=== PATIENT | female | born 1995 | race African-American/Black ===

== ENCOUNTER 2018-06-16 08:00 | Emergency (ER) | payer OTHER ==
[~2018-06-16] VITALS: Ht 167.6 cm; Wt 60.8 kg
[2018-06-16 08:01] VITALS: BP 117/71
[2018-06-16] MEDS ORDERED: KETOROLAC 30 MG/1 ML ONE (08:29)
[2018-06-16] MEDS ORDERED: HYDROcodone/APAP 5/325 TABLET ONE (08:29)
[2018-06-16] MEDS ORDERED: DIPH,PERTUSS(ACELL),TET VAC/PF 0.5 ML IM-VACC ONE ×2 (08:30)
[2018-06-16] MEDS ORDERED: HYDROcodone/APAP 5/325 TABLET PO ONE (08:30)
[2018-06-16] MEDS ORDERED: KETOROLAC 30 MG/1 ML IM ONE (08:30)
[2018-06-16] MEDS ORDERED: L.E.T SOLUTION TP ONE ×4 (08:30→09:09)
[2018-06-16] MEDS ORDERED: BACITRACIN ZINC OINT 500U/GM, 0.9 GM ONE ×2 (09:10)
== END 2018-06-16 10:54 | disposition home or self-care (01) ==
LOC: ED 08:53
DX: S50.311A Abrasion of right elbow, initial encounter (principal); S80.212A Abrasion, left knee, initial encounter; S80.211A Abrasion, right knee, initial encounter; S50.312A Abrasion of left elbow, initial encounter; S09.90XA Unspecified injury of head, initial encounter; W19.XXXA Unspecified fall, initial encounter; Y93.89 Activity, other specified; Y92.410 Unspecified street and highway as the place of occurrence of the external cause; Y99.9 Unspecified external cause status
CPT/HCPCS: 73080; 73564; 90471; 90715; 96372; 99283; J1885